=== PATIENT | male | born 1990 | race American Indian/Alaskan Native ===

== ENCOUNTER 2019-02-01 03:44 | Emergency (ER) | payer SELFPAY ==
[2019-02-01 04:00] VITALS: BMI 23.1
[2019-02-01 04:02] VITALS: BP 142/90; PULSE 91; RESP 18; TEMP 98; O2SAT 98
--- NOTE | 2019-02-01 06:02 | ED PDOC ---
HPI: Psych/Substance Abuse Time Seen by Provider: 02/01/19 04:14 Chief Complaint (Nursing): Alcohol Ingestion Chief Complaint (Provider): Alcohol abuse History Per: Patient History/Exam Limitations: no limitations Past Medical History Vital Signs: Last Vital Signs Temp 98.0 F 02/01/19 03:59 Pulse 91 H 02/01/19 03:59 Resp 18 02/01/19 03:59 BP 142/90 02/01/19 03:59 Pulse Ox 98 02/01/19 03:59 Primary Care Provider: Procedure,Nonphys - Allergies Allergies/Adverse Reactions: Allergies Allergy/AdvReac Type Severity Reaction Status Date / Time No Known Allergies Allergy Verified 02/01/19 03:59 - ECG O2 Sat by Pulse Oximetry: 98 Disposition - Clinical Impression Clinical Impression: Alcohol abuse - Patient ED Disposition Is Patient to be Admitted: No - Disposition Disposition: Routine/Home Disposition Time: 06:09 Condition: STABLE Instructions: Alcohol Use - When Is Drinking a Problem?
== END 2019-02-01 08:02 | disposition home or self-care (01) ==
LOC: H.ER 03:44
DX: F10.10 Alcohol abuse, uncomplicated (principal)